=== PATIENT | female | born 1945 | race Caucasian/White ===

== ENCOUNTER → 2022-09-14 | Outpatient (CLI) | payer MEDICARE, BC, SELFPAY ==
--- NOTE | 2022-09-14 09:26 | BI_ITS ---
MAMMOGRAPHY - BILATERAL DIAGNOSTIC REASON FOR EXAM: Female, 77 years old. One-month history of right breast pain. PERTINENT HISTORY: Personal history of breast cancer. Remote left excisional breast biopsy. TECHNIQUE: Digital bilateral breast iker (3D mammographic acquisition) in the CC and MLO projections. 2-D mediolateral oblique (MLO) and craniocaudad (CC) views of both breasts were obtained. CAD: Full Field Digital Mammography with Computer Added Detection was performed. COMPARISON: Comparison is made with prior outside mammogram dated 05/25/2021. FINDINGS: Breast Composition: There are scattered areas of fibroglandular density. There are no dominant masses or suspicious calcifications. Stable small benign appearing bilateral axillary lymph nodes. No other significant abnormalities are identified. There has been no significant change since the prior study. BI/DIAG MAMM W/CAD, BILAT IMPRESSION: Stable bilateral diagnostic mammogram. Correlation with targeted ultrasound of the left breast is recommended. ASSESSMENT CATEGORY: BIRADS Category 0: Incomplete. Need additional imaging evaluation. A letter regarding these results will be sent to the patient by the facility within 30 days. Approximately 10% of breast cancers are not detected by mammography. A normal mammogram should not delay biopsy of a clinically suspicious abnormality. Electronically Signed: Sourav Ramon MD at 10:46 EST ,
--- NOTE | 2022-09-14 09:26 | US_ITS ---
STUDY: ULTRASOUND BREAST - RIGHT REASON FOR EXAM: Female, 77 years old. Right breast pain. TECHNIQUE: Axial and longitudinal images of the RIGHT breast were performed with a high resolution ultrasound transducer. # OF IMAGES: 27 COMPARISON: Comparison is made with prior mammogram done earlier today. FINDINGS: RIGHT Breast: The retroareolar region of the breast was examined with ultrasound. There is a 5 mm x 5 mm x 3 mm cyst in the retroareolar region of the right breast. US/Breast Limited Unilateral IMPRESSION: 5 mm x 5 mm x 3 mm cyst in the retroareolar region of the right breast. ASSESSMENT CATEGORY: BIRADS Category 2: Benign. A letter regarding these results will be sent to the patient by the facility within 30 days. Electronically Signed: Sourav Ramon MD at 10:47 EST ,
== END | disposition home or self-care (01) ==
PROVIDERS: Referring Provider Nurse Practitioner Family; Visit Provider Nurse Practitioner Family
DX: Z92.89 Personal history of other medical treatment (principal); N64.4 Mastodynia; R92.2 Inconclusive mammogram; N60.01 Solitary cyst of right breast
CPT/HCPCS: 76642; 77062; 77066; G0279